=== PATIENT | female | born 1980 | race American Indian/Alaskan Native ===

== ENCOUNTER → 2017-06-09 | Outpatient (CLI) | payer MEDICAID, OTHER | LOC: FIMAGING 11:50 | PROVIDERS: ATTEND Midwife | DX: O09.522 Supervision of elderly multigravida, second trimester (principal); Z3A.18 18 weeks gestation of pregnancy ==

== ENCOUNTER 2018-05-19 20:06 | Emergency (ER) | payer MEDICAID ==
[2018-05-19 20:17] VITALS: BP 141/82
--- NOTE | 2018-05-19 20:41 | EDPHY ---
H & P Time Seen by Provider: 05/19/18 20:34 HPI/ROS: CHIEF COMPLAINT: Dental pain HISTORY OF PRESENT ILLNESS: Patient is here status post lower wisdom tooth extraction approximately 1 week ago. She has had constant pain since then has been taking Tylenol and ibuprofen is concerned that she is taking too much Tylenol ibuprofen. She also notes that there has been a slight increase in her pain. She has noticed no swelling or discharge from the area. She has had no fever. She had no trouble swallowing. REVIEW OF SYSTEMS: Constitutional: No fever, no chills. Eyes: No discharge. ENT: No sore throat. Cardiovascular: No chest pain, no palpitations. Respiratory: No cough, no shortness of breath. Gastrointestinal: No abdominal pain, no vomiting. Genitourinary: No hematuria. Musculoskeletal: No back pain. Skin: No rashes. Neurological: No headache. Smoking Status: Current some day smoker Physical Exam: General Appearance: Alert and no distress. Eyes: Pupils equal and round no injection. Respiratory: Chest is nontender, lungs are clear to auscultation. Cardiac: regular rate and rhythm. Gastrointestinal: Abdomen is soft and nontender, no masses, bowel sounds normal. Musculoskeletal: Neck is supple and nontender. Extremities have full range of motion and are nontender. Skin: No rashes or lesions. Oral: Oral exam consistent with was in tooth extraction will without complication. There is no abscess or gingival erythema or facial swelling. Constitutional: Initial Vital Signs Temperature (C) 36.8 C 05/19/18 20:14 Heart Rate 68 05/19/18 20:14 Respiratory Rate 18 05/19/18 20:14 Blood Pressure 141/82 H 05/19/18 20:14 O2 Sat (%) 98 05/19/18 20:14 O2 Delivery Mode Room Air Allergies/Adverse Reactions: No Known Allergies Allergy (Verified 06/20/12 21:54) Home Medications: Medication Instructions Recorded Amoxicillin Trihydrate 500 mg PO TID 7 Days cap 05/19/18 [Amoxicillin] Celexa 05/19/18 Effexor Xr 05/19/18 Hydrocodone/Acetaminophen [[place] 1 tab PO Q6H PRN #8 tab 05/19/18 5/325 (*)] Neurontin 05/19/18 Medical Decision Making ED Course/Re-evaluation: The patient's history and physical are most consistent with dental pain secondary to was into the extraction. She may be developing a small infections was started on amoxicillin. She was also given a small amount of pain medication until she follows up with her surgeon in 2 days. I considered osteomyelitis, facial abscess, dental abscess, dry socket. - Data Points Medications Given: Discontinued Medications Hydrocodone Bitart/Acetaminophen ([place] 5/325) 2 tab PO EDNOW ONE Stop: 05/19/18 22:13 Last Admin: 05/19/18 22:16 Dose: 2 tab Amoxicillin (Amoxicillin) 500 mg PO EDNOW ONE PRN Reason: Protocol Stop: 05/19/18 22:12 Last Admin: 05/19/18 22:16 Dose: 500 mg Departure - Departure Disposition: Home, Routine, Self-Care Clinical Impression: Pain, dental Condition: Good Instructions: Toothache (ED) Additional Instructions: Follow-up clear surgeon on as scheduled. Start amoxicillin this evening. Referrals: NONE *PRIMARY CARE P,. [Primary Care Provider] - As per Instructions [facility],. [Clinic] - As per Instructions Stand Alone Forms: [employer], Statement of Treatment Prescriptions: Amoxicillin Trihydrate [Amoxicillin] 500 mg PO TID 7 Days cap Hydrocodone/Acetaminophen [[place] 5/325 (*)] 1 tab PO Q6H PRN #8 tab PRN Reason: Pain, Moderate
[2018-05-19] MEDS ORDERED: HYDROCODONE/APAP 5/325 TAB PO ONE (22:12)
== END 2018-05-19 20:52 | disposition home or self-care (01) ==
DX: K08.89 Other specified disorders of teeth and supporting structures (principal)

== ENCOUNTER 2018-07-26 16:51 | Emergency (ER) | payer MEDICAID ==
[2018-07-26 17:07] VITALS: BP 127/80
--- NOTE | 2018-07-26 17:17 | EDPHY ---
H & P Stated Complaint: shingles Time Seen by Provider: 07/26/18 17:09 HPI/ROS: HPI: This is a 37-year-old female who presents with Chief Complaint: Concern for shingles Location: Left buttock Quality: Rash Duration: 3-4 days Signs and Symptoms: no fever, no nausea, no vomiting, no diarrhea, no urinary symptoms, no chest pain, no shortness of breath, no wheezing, no cough, no sore throat, no neck stiffness, no joint pain, no swollen glands, no ear pain Timing: Acute, sudden onset Severity: Moderate Context: Patient reports that she has a history of depression, anxiety with recent childbirth several months ago and being involved in an unhealthy relationship that she has since left her partner. She reports that 1 week ago she started to experience malaise, low-grade fevers, body aches. 3-4 days ago she started to experience paresthesias and pain on her left buttocks and then the rash appeared several days later. She reports that this shingles outbreak is lower than the 1 earlier in the year. She is having no difficulty using the bathroom. Denies any radiation, weakness, decreased range of motion. She already started to take gabapentin for the pain that she had left over from her prior shingles outbreak. She reports [id number] relief in her pain with this medication. She missed work this week and will need to miss a next week due to the rash has not scabbed over yet. Modifying Factors: Comment: ROS: A comprehensive 10 system review of systems is otherwise negative aside from elements mentioned in the history of present illness. MEDICAL/SURGICAL/SOCIAL HISTORY: Medical history: , depression Surgical history: , tubal ligation Social history: Current every day smoker. Family history noncontributory. CONSTITUTIONAL: Extremely well-appearing adult white female, awake and alert, no obvious distress HEENT: Atraumatic and normocephalic, PERRL, EOMI. Nares patent; no rhinorrhea; no nasal mucosal edema. Tympanic membranes clear. Oropharynx clear, no exudate and moist pink mucosa. Airway patent. No lymphadenopathy. No meningismus. Cardiovascular: Normal S1/S2, regular rate, regular rhythm, without murmur rub or gallop. PULMONARY/CHEST: Symmetrical and nontender. Clear to auscultation bilaterally. Good air movement. No accessory muscle usage. ABDOMEN: Soft, nondistended, nontender, no rebound, no guarding, no peritoneal signs, no masses or organomegaly. No CVAT. EXTREMITIES: 2/2 pulses, strength 5/5, no deformities, no clubbing, no cyanosis or edema. NEUROLOGICAL: no focal neuro deficits. GCS 15. SKIN: Warm and dry, left buttock on left side that does not cross midline shows 2 in patch of macular papular rash with vesicles in dermatomal distribution. Good capillary refill. Source: Patient Exam Limitations: No limitations - Personal History Current Tetanus/Diphtheria Vaccine: No Current Tetanus Diphtheria and Acellular Pertussis (TDAP): No - Medical/Surgical History Hx Asthma: No Hx Chronic Respiratory Disease: No Hx Diabetes: No Hx Cardiac Disease: No Hx Renal Disease: No Hx Cirrhosis: No Hx Alcoholism: No Hx HIV/AIDS: No Hx Splenectomy or Spleen Trauma: No Other PMH: . tubal ligation. c section, shingles - Social History Smoking Status: Current some day smoker Constitutional: Initial Vital Signs Temperature (C) 37.2 C 07/26/18 17:05 Heart Rate 96 07/26/18 17:05 Respiratory Rate 16 07/26/18 17:05 Blood Pressure 127/80 H 07/26/18 17:05 O2 Sat (%) 96 07/26/18 17:05 O2 Delivery Mode Room Air Allergies/Adverse Reactions: No Known Allergies Allergy (Verified 07/26/18 17:04) Home Medications: Medication Instructions Recorded Celexa 05/19/18 Acyclovir 800 mg PO 5XD #35 tab 07/26/18 Medical Decision Making ED Course/Re-evaluation: Vital signs reviewed and stable upon arrival. No systemic signs. Clinically patient is presenting with herpes zoster localized infection and no signs of herpes zoster ophthalmicus, herpes zoster oticus or disseminated. Patient given Percocet, gabapentin 300 mg, acyclovir 800 mg and prescription for same for 5 times a day x7 days Patient informed me that she already has a prescription for gabapentin. Work note provided per request. Also advised patient that would benefit for her to follow up with primary care provider to discuss depression anxiety. This patient was seen under the supervision of my secondary supervising physician. I evaluated care for this patient independently. Discussed this patient with Dr. Cast who did not see the patient. Differential Diagnosis: Differential diagnosis includes but is not limited to varicella, small pox, DIC , necrotizing fasciitis, bullous pemphigoid, erythema multiforme major, herpes zoster, dermatitis herpetiformis, poison dermatitis. Departure - Departure Disposition: Home, Routine, Self-Care Clinical Impression: Shingles rash Qualifiers: Herpes zoster complications: without complications Qualified Code(s): B02.9 - Zoster without complications Condition: Good Instructions: Shingles (ED) Additional Instructions: Keep the rash covered until the rash is scabbed over. Take Tylenol 650 mg every 4 hours and/or Ibuprofen 600 mg every 8 hours with food as needed for pain. Continue to take gabapentin as directed for neuropathic pain. Take acyclovir as directed which is 5 times per day x7 days. Follow-up with PCP to discuss depression/anxiety as well as shingles follow-up. You would benefit from being placed on an antidepressant psychiatric medication. Referrals: PCP Not In,[facility] [Medical Doctor] - 5-7 days, call for appt. Stand Alone Forms: Work Excuse Prescriptions: Acyclovir 800 mg PO 5XD #35 tab
[2018-07-26] MEDS ORDERED: GABAPENTIN 300 MG CAP PO ONE (17:20)
[2018-07-26] MEDS ORDERED: ACYCLOVIR 400 MG TAB PO ONE (17:20)
[2018-07-26] MEDS ORDERED: OXYCODONE/APAP 5/325 TAB PO ONE (17:20)
== END 2018-07-26 17:29 | disposition home or self-care (01) ==
DX: B02.9 Zoster without complications (principal)

== ENCOUNTER 2018-08-16 17:59 | Emergency (ER) | payer MEDICAID ==
[2018-08-16 18:08] VITALS: BP 136/89
[2018-08-16] MEDS ORDERED: HYDROCODONE/APAP 5/325 TAB PO ONE (18:35)
--- NOTE | 2018-08-16 18:38 | EDPHY ---
H & P Time Seen by Provider: 08/16/18 18:10 HPI/ROS: CHIEF COMPLAINT: Right arm pain HISTORY OF PRESENT ILLNESS: Patient is a 37-year-old female here with complaint of intermittent right arm pain for the last 2 months and then this morning she has had persistent pain. She points to the 4th and 5th digits see source of her pain. She reports no injury. She does state that the fingers feel somewhat numb and weak. She denies any headache, dizziness, trouble finding words, leg weakness, fever. She does report that earlier this week she had some right-sided neck pain which has resolved. The last couple months which she has had the symptom she has not seen her primary care doctor for any evaluation as the source for pain. She is 9 months and has been caring her child in the right arm in a reports that while caring her child this worsens her pain. REVIEW OF SYSTEMS: Constitutional: No fever, no chills. Eyes: No discharge. ENT: No sore throat. Cardiovascular: No chest pain, no palpitations. Respiratory: No cough, no shortness of breath. Gastrointestinal: No abdominal pain, no vomiting. Genitourinary: No hematuria. Musculoskeletal: No back pain. Skin: No rashes. Neurological: No headache. Smoking Status: Current some day smoker Physical Exam: General Appearance: Alert and no distress. ENT: normal dentition. No tonsillar exudate or swelling. Eyes: Pupils equal and round no injection. Respiratory: Chest is nontender, lungs are clear to auscultation. Cardiac: regular rate and rhythm. No lower extremity edema Gastrointestinal: Abdomen is soft and nontender, no masses, bowel sounds normal. Musculoskeletal: Neck is supple and nontender. Extremities have full range of motion and are nontender without deformity Skin: No rashes or lesions. Neuro: Cranial nerves grossly intact. No nystagmus. Normal [id number] testing. No ulnar drift. Slight decreased strength with grasp in the right hand compared to the left. Ambulatory. Constitutional: Initial Vital Signs Temperature (C) 36.8 C 08/16/18 18:06 Heart Rate 97 08/16/18 18:06 Respiratory Rate 16 08/16/18 18:06 Blood Pressure 136/89 H 08/16/18 18:06 O2 Sat (%) 96 08/16/18 18:06 O2 Delivery Mode Room Air Allergies/Adverse Reactions: No Known Allergies Allergy (Verified 08/16/18 18:06) Home Medications: Medication Instructions Recorded Celexa 05/19/18 Hydrocodone/APAP 5/325 [[place] 1 tab PO Q6H PRN #6 tab 08/16/18 5/325 (*)] Neurontin 08/16/18 Medical Decision Making ED Course/Re-evaluation: 37-year-old female here with intermittent arm pain for the last 2 months now with persistent pain today. Reports of pain in the 4th and 5th digits is most consistent with ulnar nerve distribution and entrapment likely at the cubital tunnel. I discussed with the patient and reviewed the workup to include MRI and EMG. Complete neurologic exam reveals no evidence of CVA. Additionally there is no evidence of compartment syndrome as her compartments are soft. No evidence of peripheral vascular disease as her pulses are strong and her skin color is pink and cap refills less than 3 sec in all 5 digits. She was referred to Hand surgery for further treatment and evaluation of her pain. Differential Diagnosis: CVA, peripheral neuropathy, cubital tunnel syndrome, DVT, compartment syndrome - Data Points Medications Given: Discontinued Medications Hydrocodone Bitart/Acetaminophen ([place] 5/325) 1 tab PO EDNOW ONE Stop: 08/16/18 18:36 Last Admin: 08/16/18 18:39 Dose: 1 tab Hydrocodone Bitart/Acetaminophen ([place] 5/325mg Prepack#6) 1 btl TAKEHOME EDNOW ONE Stop: 08/16/18 19:03 Last Admin: 08/16/18 19:03 Dose: 1 btl Departure - Departure Disposition: Home, Routine, Self-Care Clinical Impression: Cubital tunnel syndrome on right Instructions: Hydrocodone/Acetaminophen (By mouth), Cubital Tunnel Syndrome (ED ) Additional Instructions: Please call the office of Dr. Hutchinson to schedule an appointment for further evaluation of you're hand and arm pain. He will likely order an MRI of her neck and do an EMG of you're arm. Take 600 mg of Motrin 3 times a day for the next 5 days. Ie given you a prescription for [place] for breakthrough pain. Referrals: NONE *PRIMARY CARE P,. [Primary Care Provider] - As per Instructions Corinne Hutchinson MD [Medical Doctor] - As per Instructions Prescriptions: Hydrocodone/APAP 5/325 [[place] 5/325 (*)] 1 tab PO Q6H PRN #6 tab PRN Reason: Pain, Breakthrough
[2018-08-16] MEDS ORDERED: HYDROCOD/APAP 5/325 PREPACK#6 BTL TAKEHOME ONE ×2 (19:01→19:02)
== END 2018-08-16 19:06 | disposition home or self-care (01) ==
DX: G56.21 Lesion of ulnar nerve, right upper limb (principal); F17.200 Nicotine dependence, unspecified, uncomplicated

== ENCOUNTER 2018-09-27 13:54 | Emergency (ER) | payer MEDICAID ==
--- NOTE | 2018-09-27 14:08 | EDPHY ---
H & P Stated Complaint: carpal tunnel pain Time Seen by Provider: 09/27/18 14:08 HPI/ROS: CHIEF COMPLAINT: Requesting referral to hand surgeon for carpal tunnel syndrome HISTORY OF PRESENT ILLNESS: The patient presents to the ED requesting a repeat referral to a hand surgeon for her diagnosis of carpal tunnel syndrome. The patient reportedly has been experiencing intermittent numbness in her hands and pain in her wrist below the flexor retinaculum. Curiously she reports paresthesias intermittently involving all 5 of her fingers. She currently is asymptomatic. The patient denies any additional acute complaints. REVIEW OF SYSTEMS: A comprehensive 10 point review of systems is otherwise negative aside from elements mentioned in the history of present illness. Source: Patient Exam Limitations: No limitations - Personal History LMP (Females 10-55): Pre Menstrual Current Tetanus/Diphtheria Vaccine: Yes Current Tetanus Diphtheria and Acellular Pertussis (TDAP): Yes Tetanus Vaccine Date: last 10 years - Medical/Surgical History Hx Asthma: No Hx Chronic Respiratory Disease: No Hx Diabetes: No Hx Cardiac Disease: No Hx Renal Disease: No Hx Cirrhosis: No Hx Alcoholism: No Hx HIV/AIDS: No Hx Splenectomy or Spleen Trauma: No Other PMH: . tubal ligation. c section, shingles - Social History Smoking Status: Current some day smoker - Physical Exam Exam: General Appearance: Alert, no distress Eyes: Pupils equal and round no pallor or injection ENT, Mouth: Mucous membranes moist Respiratory: There are no retractions, lungs are clear to auscultation Cardiovascular: Regular rate and rhythm Gastrointestinal: Abdomen is soft and nontender, no masses, bowel sounds normal Neurological: 5/5 strength noted all 4 extremities, normal sensory exam Skin: Warm and dry, no rashes Musculoskeletal: Neck is supple nontender Extremities: Tenderness to palpation bilateral wrists over the flexor retinaculum. No joint effusion Constitutional: Initial Vital Signs Temperature (C) 36.8 C 09/27/18 13:59 Heart Rate 94 09/27/18 13:59 Respiratory Rate 18 09/27/18 13:59 Blood Pressure 144/66 H 09/27/18 13:59 O2 Sat (%) 94 09/27/18 13:59 O2 Delivery Mode Nasal Cannula Allergies/Adverse Reactions: No Known Allergies Allergy (Verified 08/16/18 18:06) Home Medications: Medication Instructions Recorded Celexa 05/19/18 Hydrocodone/APAP 5/325 [[place] 1 tab PO Q6H PRN #6 tab 08/16/18 5/325 (*)] Neurontin 08/16/18 Buspar (*) 09/27/18 Medical Decision Making ED Course/Re-evaluation: Per the patient's request she has been referred to the hand surgeon she had previously been referred to. She is advised to continue to use ibuprofen Advil for management of her symptoms. Differential Diagnosis: Differential diagnosis considered includes carpal tunnel syndrome, septic arthritis, occult fracture Departure - Departure Disposition: Home, Routine, Self-Care Clinical Impression: Bilateral wrist pain Condition: Good Instructions: Arthralgia (ED) Additional Instructions: 1. Take Ibuprofen or Motrin 600 mg by mouth three times a day. 2. Please follow-up with a hand surgeon you have been referred to for further evaluation of your wrist pain. Referrals: Corinne Hutchinson MD [Medical Doctor] - As per Instructions
[2018-09-27] MEDS ORDERED: IBUPROFEN 600 MG TAB PO ONE (14:21)
[2018-09-27 14:30] VITALS: BP 122/73
== END 2018-09-27 14:30 | disposition home or self-care (01) ==
DX: M25.531 Pain in right wrist (principal); M25.532 Pain in left wrist